=== PATIENT | male | born 1970 | race Caucasian/White ===

== ENCOUNTER 2024-10-25 06:16 | Day surgery (SDC) | payer BC, SELFPAY | END 2024-10-25 11:05 | disposition home or self-care (01) | LOC: GI 06:16 | PROVIDERS: ATTENDING PHYSICIAN Specialist | DX: Z12.11 Encounter for screening for malignant neoplasm of colon (principal); D12.5 Benign neoplasm of sigmoid colon; D12.3 Benign neoplasm of transverse colon; D12.0 Benign neoplasm of cecum; Z86.0101 Personal history of adenomatous and serrated colon polyps | CPT/HCPCS: 45380; 88305 ==